=== PATIENT | female | born 1950 | race Caucasian/White ===

== ENCOUNTER → 2016-11-10 | Outpatient (CLI) | payer MEDICARE, MEDICAID ==
[~2016-11-10] MED LIST: CALC0.25 PO; CIPR500T87 PO; CLOT10TR PO; FURO-92 PO; LACT10SO28 PO; LACT10SO5 PO; LIDOCAINE 1%, 20ML ONE; LISI-424 PO; MERO1VIA3 IV; METH-356 PO; METH10OR3 PO; METH12VI2 SQ; METO25TA35 PO; MUPI22OI2 TP; NICO1PAT4 TD; ONDA4TAB13 PO; RIFA550T PO; SIME80TA16 PO; SODIUM BICARBONATE 4.2%, 5ML ONE; SPIR100T PO; SPIR50TA2 PO; SULF1TAB24 PO; TRAZ100T15 PO; TRAZ50TA18 PO; TRIA15CR3 TP; VITAMIND; ZINC220C5 PO
[2016-11-10 16:48] LABS: BLOOD UREA NITROGEN 22 mg/dL (7-18)
[2016-11-10 16:52] LABS: ASPARTATE AMINO TRANSFERASE 89 U/L (15-37)
[2016-11-10 17:20] LABS: HEMOGLOBIN 11.5 g/dL (11.7-16.4)
[2016-11-10 17:21] LABS: DIFF TOTAL CELLS COUNTED 100 CELL DIFF
[2016-11-10 17:34] LABS: ANISOCYTOSIS 1+
[2016-11-10 17:35] LABS: OVALOCYTES 1+; VERIFY COUNTS? YES
== END | disposition home or self-care (01) ==
LOC: RAD 14:44
PROVIDERS: ATTEND Family Medicine Sports Medicine
DX: K74.60 Unspecified cirrhosis of liver (principal); B18.2 Chronic viral hepatitis C; R18.8 Other ascites
CPT/HCPCS: 36415; 49083; 80053; 82140; 85025; 85610; J3490

== ENCOUNTER → 2016-11-13 | Outpatient (CLI) | payer MEDICARE, MEDICAID | END | disposition home or self-care (01) | LOC: RAD 12:09 | PROVIDERS: ATTEND Family Medicine Sports Medicine | DX: R18.8 Other ascites (principal) | CPT/HCPCS: 49083; J3490 ==

== ENCOUNTER → 2016-11-18 | Outpatient (CLI) | payer MEDICARE, MEDICAID ==
[~2016-11-18] MED LIST changes: +ALBUMIN HUMAN 25%, 25GM/100ML ONE; -LIDOCAINE 1%, 20ML ONE; +LIDOCAINE 2%, 20ML ONE
[2016-11-18 12:29] LABS: ASPARTATE AMINO TRANSFERASE 100 U/L (15-37); BLOOD UREA NITROGEN 34 mg/dL (7-18)
== END | disposition home or self-care (01) ==
LOC: RAD 10:42
PROVIDERS: ATTEND Family Medicine Sports Medicine
DX: R18.8 Other ascites (principal); B18.2 Chronic viral hepatitis C; K74.60 Unspecified cirrhosis of liver
CPT/HCPCS: 36415; 49083; 80053; 82140; J3490; P9047

== ENCOUNTER → 2016-11-23 | Outpatient (CLI) | payer MEDICARE, MEDICAID ==
[~2016-11-23] MED LIST changes: -ALBUMIN HUMAN 25%, 25GM/100ML ONE; +LIDOCAINE 1%, 20ML ONE; -LIDOCAINE 2%, 20ML ONE
[2016-11-23 16:38] LABS: ASPARTATE AMINO TRANSFERASE 99 U/L (15-37); BLOOD UREA NITROGEN 26 mg/dL (7-18)
== END | disposition home or self-care (01) ==
LOC: RAD 14:30
PROVIDERS: ATTEND Physician Assistant
DX: R18.8 Other ascites (principal); K74.60 Unspecified cirrhosis of liver; B18.2 Chronic viral hepatitis C; R14.0 Abdominal distension (gaseous)
CPT/HCPCS: 36415; 49083; 80053; 82140; J3490

== ENCOUNTER → 2016-11-27 | Outpatient (CLI) | payer MEDICARE, MEDICAID ==
[~2016-11-27] MED LIST changes: +ALBUMIN HUMAN 25%, 25GM/100ML ONE
== END | disposition home or self-care (01) ==
LOC: RAD 09:21
PROVIDERS: ATTEND Physician Assistant
DX: K74.60 Unspecified cirrhosis of liver (principal); B18.2 Chronic viral hepatitis C
CPT/HCPCS: 49083; J3490; P9047

== ENCOUNTER → 2016-12-02 | Outpatient (CLI) | payer MEDICARE, MEDICAID ==
[~2016-12-02] MED LIST changes: -ALBUMIN HUMAN 25%, 25GM/100ML ONE
[2016-12-02 11:58] LABS: ASPARTATE AMINO TRANSFERASE 102 U/L (15-37); BLOOD UREA NITROGEN 24 mg/dL (7-18)
== END | disposition home or self-care (01) ==
LOC: RAD 11:28
PROVIDERS: ATTEND Physician Assistant
DX: R18.8 Other ascites (principal); R14.0 Abdominal distension (gaseous); R10.9 Unspecified abdominal pain; K74.60 Unspecified cirrhosis of liver; B18.2 Chronic viral hepatitis C
CPT/HCPCS: 36415; 49083; 80053; 82140; J3490

== ENCOUNTER → 2016-12-14 | Outpatient (CLI) | payer MEDICARE, MEDICAID ==
[~2016-12-14] MED LIST changes: +ALBUMIN HUMAN 25%, 25GM/100ML ONE; -SODIUM BICARBONATE 4.2%, 5ML ONE
== END | disposition home or self-care (01) ==
LOC: RAD 12:03
PROVIDERS: ATTEND Physician Assistant
DX: R18.8 Other ascites (principal); R10.9 Unspecified abdominal pain; R14.0 Abdominal distension (gaseous); K74.60 Unspecified cirrhosis of liver; B18.2 Chronic viral hepatitis C
CPT/HCPCS: 49083; J3490; P9047

== ENCOUNTER → 2017-01-04 | Outpatient (CLI) | payer MEDICARE, MEDICAID ==
[~2017-01-04] MED LIST changes: +MERO1VIA15 IV; -MERO1VIA3 IV; +SODIUM BICARBONATE 4.2%, 5ML ONE
== END | disposition home or self-care (01) ==
LOC: RAD 12:22
PROVIDERS: ATTEND Physician Assistant
DX: R18.8 Other ascites (principal); K74.60 Unspecified cirrhosis of liver; B18.2 Chronic viral hepatitis C; R14.0 Abdominal distension (gaseous)
CPT/HCPCS: 49083; J3490; P9047

== ENCOUNTER → 2017-01-06 | Outpatient (CLI) | payer MEDICARE, MEDICAID ==
[~2017-01-06] MED LIST changes: -ALBUMIN HUMAN 25%, 25GM/100ML ONE; -LIDOCAINE 1%, 20ML ONE; -SODIUM BICARBONATE 4.2%, 5ML ONE
== END | disposition home or self-care (01) ==
LOC: CFH 07:57
PROVIDERS: ATTEND Physician Assistant
DX: I71.4 Abdominal aortic aneurysm, without rupture (principal); I70.0 Atherosclerosis of aorta
CPT/HCPCS: 93978

== ENCOUNTER → 2017-01-08 | Outpatient (CLI) | payer MEDICARE, MEDICAID ==
[~2017-01-08] MED LIST changes: +ALBUMIN HUMAN 25%, 25GM/100ML ONE; +HYDR-3307 PO; +LIDOCAINE 1%, 20ML ONE; +RIFA200T3 PO; +SODIUM BICARBONATE 4.2%, 5ML ONE; +sulfa abx PO
[2017-01-08 13:00] LABS: BLOOD UREA NITROGEN 23 mg/dL (7-18)
[2017-01-08 13:02] LABS: ASPARTATE AMINO TRANSFERASE 127 U/L (15-37)
== END | disposition home or self-care (01) ==
LOC: RAD 12:55
PROVIDERS: ATTEND Physician Assistant
DX: B18.2 Chronic viral hepatitis C (principal); K70.31 Alcoholic cirrhosis of liver with ascites
CPT/HCPCS: 36415; 49083; 80053; 82140; J3490; P9047

== ENCOUNTER → 2017-01-13 | Outpatient (CLI) | payer MEDICARE, MEDICAID ==
[~2017-01-13] MED LIST changes: +ALBUMIN HUMAN 25%, 25GM/100ML IV ONE; -ALBUMIN HUMAN 25%, 25GM/100ML ONE; -HYDR-3307 PO; -RIFA200T3 PO; -sulfa abx PO
== END | disposition home or self-care (01) ==
LOC: RAD 11:40
PROVIDERS: ATTEND Physician Assistant
DX: R18.8 Other ascites (principal); K74.60 Unspecified cirrhosis of liver; B18.2 Chronic viral hepatitis C
CPT/HCPCS: 49083; J3490; P9047

== ENCOUNTER 2017-01-18 12:02 | Observation (INO) | payer MEDICARE, MEDICAID ==
[~2017-01-18] VITALS: Ht 165.1 cm; Wt 63.9 kg
[~2017-01-18 12:02] MED LIST changes: -HYDR-3307 PO; -RIFA200T3 PO; -sulfa abx PO
[2017-01-18] MEDS ORDERED: SODIUM CHLORIDE FLUSH 10ML SYR IVF ONE (12:30)
[2017-01-18] MEDS ORDERED: SODIUM CHLORIDE 0.9% 1,000ML IVBOLUS ONE (12:30)
[2017-01-18] MEDS ORDERED: RIFA200T3 PO (12:51)
[2017-01-18] MEDS ORDERED: sulfa abx PO (12:51)
[2017-01-18 12:52] LABS: BLOOD UREA NITROGEN 26 mg/dL (7-18)
[2017-01-18] MEDS ORDERED: ONDANSETRON ODT 4 MG PO PRN (15:30)
[2017-01-18] MEDS ORDERED: TRAZODONE 50MG TABLET PO PRN (15:30)
[2017-01-18] MEDS ORDERED: DOCUSATE 100 MG CAPSULE PO PRN (15:30)
[2017-01-18] MEDS ORDERED: HYDR-3307 PO (15:40)
[2017-01-18 15:56] VITALS: BP 104/46
[2017-01-18] MEDS ORDERED: HYDROcodone/APAP 10/325 MG TABLET PO PRN (16:00)
[2017-01-18] MEDS: CLOTRIMAZOLE TROCHES 10 MG PO SCH ×2 (16:00→21:59)
[2017-01-18] MEDS ORDERED: ENOXAPARIN 40 MG/0.4 ML SQ SCH (16:00)
[2017-01-18 16:36] LABS: ANISOCYTOSIS 1+; OVALOCYTES 1+; POIKILOCYTOSIS 1+; SCHISTOCYTES 1+
[2017-01-18] MEDS ORDERED: LACTULOSE 10 GM/15 ML UDC PO SCH (21:00)
[2017-01-18] MEDS ORDERED: SULFAMETH./TRIMETHOPRIM DS 800MG/160MG TABLET PO SCH (21:00)
[2017-01-18] MEDS: RIFAXIMIN 200 MG TABLET PO SCH (21:59)
[2017-01-19 03:54] VITALS: BP_SYST 84; BP_SYST 92; BP_DIAS 47; BP_DIAS 48
[2017-01-19 05:31] VITALS: BP_SYST 81; BP_SYST 85; BP_DIAS 44; BP_DIAS 46
[2017-01-19] MEDS ORDERED: SODIUM CHLORIDE 0.9% 1,000 ML IV SCH (07:00)
[2017-01-19 07:18] VITALS: BP 84/41
[2017-01-19] MEDS ORDERED: SODIUM CHLORIDE 0.9%, 500ML IVBOLUS ONE (07:30)
[2017-01-19 07:53] VITALS: BP 90/43
[2017-01-19 08:43] VITALS: BP 94/46
[2017-01-19] MEDS: RIFAXIMIN 200 MG TABLET PO SCH (08:46)
[2017-01-19] MEDS: CLOTRIMAZOLE TROCHES 10 MG PO SCH (08:46)
[2017-01-19] MEDS ORDERED: CALCITRIOL 0.25 MCG CAPSULE PO SCH (09:00)
[2017-01-19] MEDS ORDERED: METHADONE 10 MG TABLET PO SCH (09:00)
== END 2017-01-19 13:00 | disposition home or self-care (01) ==
LOC: ED 12:36 → INTOOBSV 14:34 → EDIP 14:34 → 4WST 15:45 → 5SO 17:20 → DCLOUNGE 01-19 12:47
PROVIDERS: ADMIT Internal Medicine; ATTEND Internal Medicine
DX: R00.1 Bradycardia, unspecified (principal); B18.2 Chronic viral hepatitis C; K74.60 Unspecified cirrhosis of liver; N17.9 Acute kidney failure, unspecified; K65.2 Spontaneous bacterial peritonitis; G89.29 Other chronic pain; K59.00 Constipation, unspecified; C22.0 Liver cell carcinoma; D69.59 Other secondary thrombocytopenia; D89.1 Cryoglobulinemia; E87.5 Hyperkalemia; I95.89 Other hypotension; F17.210 Nicotine dependence, cigarettes, uncomplicated; I10 Essential (primary) hypertension; I85.00 Esophageal varices without bleeding; K72.90 Hepatic failure, unspecified without coma; K76.6 Portal hypertension; Z85.05 Personal history of malignant neoplasm of liver; Z87.11 Personal history of peptic ulcer disease; Z95.0 Presence of cardiac pacemaker
CPT/HCPCS: 36415; 80048; 80076; 82040; 82140; 83735; 84443; 85025; 85610; 93005; 96360; 96361; 99285; G0378; J7030; J7040; 86850; 86900

== ENCOUNTER → 2017-01-18 | Outpatient (CLI) | payer MEDICARE, MEDICAID ==
[~2017-01-18] MED LIST changes: +ALBUMIN HUMAN 25% 200 ML IV ONE; -ALBUMIN HUMAN 25%, 25GM/100ML IV ONE; +HYDR-3307 PO; +RIFA200T3 PO; +sulfa abx PO
== END | disposition home or self-care (01) ==
LOC: RAD 10:03
PROVIDERS: ATTEND Physician Assistant
DX: K74.60 Unspecified cirrhosis of liver (principal); B18.2 Chronic viral hepatitis C; R00.1 Bradycardia, unspecified
CPT/HCPCS: 49083; J3490; P9047

== ENCOUNTER → 2017-01-18 | Outpatient (CLI) | payer MEDICARE, MEDICAID ==
[~2017-01-18] MED LIST changes: -ALBUMIN HUMAN 25% 200 ML IV ONE; -LIDOCAINE 1%, 20ML ONE; -SODIUM BICARBONATE 4.2%, 5ML ONE
[2017-01-18 10:49] LABS: BLOOD UREA NITROGEN 26 mg/dL (7-18)
[2017-01-18 10:53] LABS: ASPARTATE AMINO TRANSFERASE 104 U/L (15-37)
== END | disposition home or self-care (01) ==
LOC: LAB 10:24
PROVIDERS: ATTEND Family Medicine Sports Medicine
DX: K72.90 Hepatic failure, unspecified without coma (principal)
CPT/HCPCS: 36415; 80053

== ENCOUNTER → 2017-01-22 | Outpatient (CLI) | payer MEDICARE, MEDICAID ==
[~2017-01-22] VITALS: Ht 180.3 cm; Wt 68.0 kg
[~2017-01-22] MED LIST changes: +ALBUMIN HUMAN 25% 200 ML IV ONE; +HYDR-3307 PO; +LIDOCAINE 2%, 20ML ONE; +RIFA200T3 PO; +SODIUM BICARBONATE 4.2%, 5ML ONE; +sulfa abx PO
== END | disposition home or self-care (01) ==
LOC: RAD 14:35
PROVIDERS: ATTEND Physician Assistant
DX: R18.8 Other ascites (principal); K74.60 Unspecified cirrhosis of liver; B18.2 Chronic viral hepatitis C
CPT/HCPCS: 49083; J3490

== ENCOUNTER → 2017-02-05 | Outpatient (CLI) | payer MEDICARE, MEDICAID ==
[~2017-02-05] MED LIST changes: -ALBUMIN HUMAN 25% 200 ML IV ONE; +ALBUMIN HUMAN 25%, 25GM/100ML ONE; +LIDOCAINE 1%, 20ML ONE; -LIDOCAINE 2%, 20ML ONE
== END | disposition home or self-care (01) ==
LOC: RAD 09:48
PROVIDERS: ATTEND Physician Assistant
DX: K74.60 Unspecified cirrhosis of liver (principal); R18.8 Other ascites
CPT/HCPCS: 49083; J3490; P9047

== ENCOUNTER → 2017-02-10 | Outpatient (CLI) | payer MEDICARE, MEDICAID ==
[~2017-02-10] MED LIST changes: +ALBUMIN HUMAN 25% 200 ML IV ONE; -ALBUMIN HUMAN 25%, 25GM/100ML ONE
== END | disposition home or self-care (01) ==
LOC: RAD 02-01 09:00
PROVIDERS: ATTEND Physician Assistant
DX: K74.60 Unspecified cirrhosis of liver (principal); B18.2 Chronic viral hepatitis C; R18.8 Other ascites
CPT/HCPCS: 49083; J3490; P9047

== ENCOUNTER → 2017-03-05 | Outpatient (CLI) | payer MEDICARE, MEDICAID ==
[~2017-03-05] MED LIST changes: -ALBUMIN HUMAN 25% 200 ML IV ONE; +ALBUMIN HUMAN 25%, 25GM/100ML ONE; -LIDOCAINE 1%, 20ML ONE; +LIDOCAINE 2%, 20ML ONE; -SODIUM BICARBONATE 4.2%, 5ML ONE
== END | disposition home or self-care (01) ==
LOC: RAD 12:17
PROVIDERS: ATTEND Physician Assistant
DX: C22.0 Liver cell carcinoma (principal); R18.8 Other ascites; K74.60 Unspecified cirrhosis of liver; B18.2 Chronic viral hepatitis C
CPT/HCPCS: 49083; J3490; P9047

== ENCOUNTER → 2017-03-10 | Outpatient (CLI) | payer MEDICARE, MEDICAID ==
[~2017-03-10] MED LIST changes: -ALBUMIN HUMAN 25%, 25GM/100ML ONE; +LIDOCAINE 1%, 20ML ONE; -LIDOCAINE 2%, 20ML ONE
== END | disposition home or self-care (01) ==
LOC: RAD 11:35
PROVIDERS: ATTEND Physician Assistant
DX: R18.8 Other ascites (principal); C22.0 Liver cell carcinoma; K74.60 Unspecified cirrhosis of liver; B18.2 Chronic viral hepatitis C
CPT/HCPCS: 49083; J3490; P9047

== ENCOUNTER → 2017-03-15 | Outpatient (CLI) | payer MEDICARE, MEDICAID | END | disposition home or self-care (01) | LOC: RAD 15:03 | PROVIDERS: ATTEND Physician Assistant | DX: R18.8 Other ascites (principal) | CPT/HCPCS: 49083; J3490 ==

== ENCOUNTER → 2017-03-19 | Outpatient (CLI) | payer MEDICARE, MEDICAID ==
[~2017-03-19] MED LIST changes: -LIDOCAINE 1%, 20ML ONE
== END | disposition home or self-care (01) ==
LOC: RAD 10:30
PROVIDERS: ATTEND Physician Assistant
DX: R18.8 Other ascites (principal); K74.60 Unspecified cirrhosis of liver; B18.2 Chronic viral hepatitis C
CPT/HCPCS: 49083

== ENCOUNTER → 2017-03-24 | Outpatient (CLI) | payer MEDICARE, MEDICAID ==
[~2017-03-24] MED LIST changes: +LIDOCAINE 1%, 20ML ONE
== END | disposition home or self-care (01) ==
LOC: RAD 15:05
PROVIDERS: ATTEND Physician Assistant
DX: R18.8 Other ascites (principal); K74.60 Unspecified cirrhosis of liver; B18.2 Chronic viral hepatitis C; M25.519 Pain in unspecified shoulder
CPT/HCPCS: 49083; J3490

== ENCOUNTER → 2017-03-29 | Outpatient (CLI) | payer MEDICARE, MEDICAID ==
[~2017-03-29] MED LIST changes: +ALBUMIN HUMAN 25%, 25GM/100ML ONE
== END | disposition home or self-care (01) ==
LOC: RAD 11:51
PROVIDERS: ATTEND Physician Assistant
DX: B18.2 Chronic viral hepatitis C (principal); K74.60 Unspecified cirrhosis of liver; R18.8 Other ascites; R10.9 Unspecified abdominal pain
CPT/HCPCS: 36415; 49083; 82105; J3490; P9047

== ENCOUNTER → 2017-04-02 | Outpatient (CLI) | payer MEDICARE, MEDICAID ==
[~2017-04-02] MED LIST changes: +ALBUMIN HUMAN 25% 12.5 GM/50 ML ONE; -ALBUMIN HUMAN 25%, 25GM/100ML ONE
== END | disposition home or self-care (01) ==
LOC: RAD 12:58
PROVIDERS: ATTEND Physician Assistant
DX: B18.2 Chronic viral hepatitis C (principal); K74.60 Unspecified cirrhosis of liver; R18.8 Other ascites
CPT/HCPCS: 49083; J3490; P9047

== ENCOUNTER → 2017-04-08 | Outpatient (CLI) | payer MEDICARE, MEDICAID ==
[~2017-04-08] MED LIST changes: -ALBUMIN HUMAN 25% 12.5 GM/50 ML ONE; +ALBUMIN HUMAN 25%, 25GM/100ML ONE
== END | disposition home or self-care (01) ==
LOC: RAD 11:39
PROVIDERS: ATTEND Physician Assistant
DX: R18.8 Other ascites (principal); K74.60 Unspecified cirrhosis of liver; B18.2 Chronic viral hepatitis C
CPT/HCPCS: 49083; J3490; P9047

== ENCOUNTER → 2017-04-10 | Outpatient (CLI) | payer MEDICARE, MEDICAID ==
[~2017-04-10] MED LIST changes: -ALBUMIN HUMAN 25%, 25GM/100ML ONE; -LIDOCAINE 1%, 20ML ONE
[2017-04-10 12:24] LABS: ASPARTATE AMINO TRANSFERASE 60 U/L (15-37); BLOOD UREA NITROGEN 22 mg/dL (7-18)
[2017-04-10 12:39] LABS: HEMATOCRIT 30.3 % (34.6-47.8); WHITE BLOOD COUNT 3.1 x10^3/uL (3.4-10)
[2017-04-10 12:40] LABS: DIFF TOTAL CELLS COUNTED 100 CELL DIFF
[2017-04-10 14:16] LABS: VERIFY COUNTS? YES
[2017-04-10 14:17] LABS: ANISOCYTOSIS 1+
== END | disposition home or self-care (01) ==
LOC: LAB 11:53
PROVIDERS: ATTEND Family Medicine Sports Medicine
DX: C22.0 Liver cell carcinoma (principal)
CPT/HCPCS: 36415; 80053; 85025; 85610

== ENCOUNTER → 2017-04-13 | Outpatient (CLI) | payer MEDICARE, MEDICAID ==
[~2017-04-13] MED LIST changes: +LIDOCAINE 1%, 20ML ONE
== END | disposition home or self-care (01) ==
LOC: RAD 14:27
PROVIDERS: ATTEND Physician Assistant
DX: R18.8 Other ascites (principal); K74.60 Unspecified cirrhosis of liver; B18.2 Chronic viral hepatitis C; Z88.8 Allergy status to other drugs, medicaments and biological substances
CPT/HCPCS: 49083; J3490

== ENCOUNTER → 2017-04-19 | Outpatient (CLI) | payer MEDICARE, MEDICAID | END | disposition home or self-care (01) | LOC: RAD 12:36 | PROVIDERS: ATTEND Physician Assistant | DX: R18.8 Other ascites (principal); K74.60 Unspecified cirrhosis of liver; B18.2 Chronic viral hepatitis C | CPT/HCPCS: 49083; J3490 ==

== ENCOUNTER → 2017-04-23 | Outpatient (CLI) | payer MEDICARE, MEDICAID ==
[~2017-04-23] MED LIST changes: +ALBUMIN HUMAN 25% 200 ML IV ONE; +NICO1PAT13 TD; -NICO1PAT4 TD; -RIFA200T3 PO; +RIFA200T5 PO; -RIFA550T PO; +RIFA550T4 PO
== END | disposition home or self-care (01) ==
LOC: RAD 12:25
PROVIDERS: ATTEND Physician Assistant
DX: R18.8 Other ascites (principal); B18.2 Chronic viral hepatitis C; K74.60 Unspecified cirrhosis of liver
CPT/HCPCS: 49083; J3490; P9047

== ENCOUNTER → 2017-05-04 | Outpatient (CLI) | payer MEDICARE, MEDICAID ==
[~2017-05-04] MED LIST changes: +ALBUMIN HUMAN 25% 100 ML IV PRN; -ALBUMIN HUMAN 25% 200 ML IV ONE
== END | disposition home or self-care (01) ==
LOC: RAD 12:13
PROVIDERS: ATTEND Physician Assistant
DX: R18.8 Other ascites (principal); K74.60 Unspecified cirrhosis of liver; B18.2 Chronic viral hepatitis C; Z88.8 Allergy status to other drugs, medicaments and biological substances
CPT/HCPCS: 49083; J3490; P9047

== ENCOUNTER → 2017-05-10 | Outpatient (CLI) | payer MEDICARE, MEDICAID ==
[~2017-05-10] MED LIST changes: -ALBUMIN HUMAN 25% 100 ML IV PRN; -LIDOCAINE 1%, 20ML ONE; +LIDOCAINE 2%, 20ML ONE; +PANT40TA5 PO
== END | disposition home or self-care (01) ==
LOC: RAD 09:37
PROVIDERS: ATTEND Physician Assistant
DX: R18.8 Other ascites (principal); K74.60 Unspecified cirrhosis of liver; B18.2 Chronic viral hepatitis C
CPT/HCPCS: 49083; 82042; 84157; 87070; 87075; 87077; 87205; 89051; J3490; 87186